=== PATIENT | female | born 1940 | race Caucasian/White ===

== ENCOUNTER 2020-04-20 11:51 | Emergency (ER) | payer OTHER, BC ==
[2020-04-20 12:05] VITALS: BP 147/73; PULSE 89; TEMP 98.8; BMI 25.5
[2020-04-20] MEDS ORDERED: CASIRIVIMAB (REGN10933) 1,200 MG, IMDEVIMAB (REGN10987) 1,200 MG in SODIUM CHLORIDE 230 ML IVPB ONE (12:27)
[2020-04-20 13:52] LABS: HEMATOCRIT 38.4 % (32.4-45.2); HEMOGLOBIN 13.2 GM/dL (10.7-15.3); MCH 31.7 pg (25.7-33.7); MCHC 34.5 g/dl (32.0-36.0); MEAN PLT VOLUME 9.5 fl (7.5-11.1); PLATELET COUNT 161 K/MM3 (134-434); RBC 4.17 M/mm3 (3.60-5.2); RDW 13.5 % (11.6-15.6); WHITE BLOOD COUNT 4.5 K/mm3 (4.0-10.0)
[2020-04-20 14:14] LABS: POTASSIUM 3.4 mmol/L (3.5-5.1)
[2020-04-20 14:15] LABS: CALCIUM 8.8 mg/dL (8.5-10.1)
[2020-04-20 14:20] LABS: CREATININE 0.8 mg/dL (0.55-1.3)
== END 2020-04-20 16:01 | disposition home or self-care (01) ==
LOC: JER 11:51
DX: U07.1 COVID-19 (principal)
CPT/HCPCS: 36415; 80048; 85027; 99284-25; M0243; Q0243